=== PATIENT | male | born 1970 | race Caucasian/White ===

== ENCOUNTER 2023-02-04 18:58 | Inpatient (IN) | payer BC ==
[2023-02-04] MEDS ORDERED: fentaNYL 100 MCG/2 ML SDV IVPUSH ONE ×2 (19:14→20:03)
[2023-02-04] MEDS ORDERED: Ondansetron 4 MG/2 ML SDV IVPUSH ONE (19:14)
[2023-02-04] MEDS ORDERED: Lactated Ringers 1,000 ML IV SCH (19:15)
[2023-02-04] MEDS ORDERED: Iopamidol 612 MG/ML 100 ML Bottle IVPUSH ONE (19:41)
[2023-02-04] MEDS ORDERED: Sodium Chloride 0.9% 10 ML SDV FLUSH ONE (19:41)
[2023-02-04] MEDS ORDERED: metroNIDAZOLE/Normal Saline 500 MG in Premix Bag 1 BAG IV ONE (20:11)
[2023-02-04] MEDS ORDERED: HYDROmorphone 0.5 MG/0.5 ML Syringe IVPUSH ONE (20:11)
[2023-02-04] MEDS ORDERED: Cefepime 2 GM in Sodium Chloride 0.9% 50 ML IV ONE (20:11)
[2023-02-04] MEDS ORDERED: Lactated Ringers 500 ML IV ONE (20:18)
[2023-02-04] MEDS ORDERED: Bupivacaine 0.5%/EPINEPHrine 1:200,000 50 ML MDV ONE (21:25)
[2023-02-04] MEDS ORDERED: Lidocaine 1% with EPINEPHrine 1:100,000 20 ML MDV ONE (21:25)
[2023-02-04] MEDS ORDERED: fentaNYL 100 MCG/2 ML SDV IVPUSH PRN (21:26)
[2023-02-04] MEDS ORDERED: Ondansetron 4 MG/2 ML SDV IVPUSH PRN (21:26)
[2023-02-04] MEDS ORDERED: Lidocaine 1% 2 ML ONE (21:30)
[2023-02-04] MEDS ORDERED: Ondansetron 4 MG/2 ML SDV ONE (21:30)
[2023-02-04] MEDS ORDERED: fentaNYL 100 MCG/2 ML SDV ONE (21:30)
[2023-02-04] MEDS ORDERED: Rocuronium 50 MG/5 ML Vial ONE (21:30)
[2023-02-04] MEDS ORDERED: Propofol 200 MG/20 ML SDV ONE (21:30)
[2023-02-04] MEDS ORDERED: Sugammadex Sodium 200 MG/2 ML VIAL ONE (22:52)
[2023-02-04] MEDS ORDERED: Ketorolac 30 MG/ML SDV ONE (22:52)
[2023-02-04] MEDS ORDERED: HYDROmorphone 0.5 MG/0.5 ML Syringe ONE (22:53)
[2023-02-04] MEDS ORDERED: Acetaminophen 325 MG Tab PO PRN (23:32)
[2023-02-04] MEDS ORDERED: Albuterol 0.083% 2.5 MG/3 ML Neb Soln NEB ONE (23:35)
[2023-02-04] MEDS ORDERED: Albuterol 0.083% 2.5 MG/3 ML Neb Soln ONE (23:39)
[2023-02-04] MEDS ORDERED: Morphine 4 MG/ML Syringe IVPUSH PRN (23:41)
[2023-02-05] MEDS: HYDROmorphone 0.5 MG/0.5 ML Syringe IVPUSH PRN ×8 (01:10→22:50)
[2023-02-05] MEDS: Sodium Chloride 0.9% 1,000 ML IV SCH ×3 (01:10→18:20)
[2023-02-05] MEDS: metroNIDAZOLE/Normal Saline 500 MG in Premix Bag 1 BAG IV SCH ×3 (04:00→20:03)
[2023-02-05] MEDS: Cefepime 2 GM in Sodium Chloride 0.9% 50 ML IV SCH ×3 (04:01→20:01)
[2023-02-05] MEDS: Enoxaparin 40 MG/0.4 ML Syringe SUBCUT SCH (09:09)
[2023-02-05] MEDS: Nicotine 21 MG/24 Hr Patch TRDERM SCH (10:20)
[2023-02-06] MEDS: oxyCODONE 5 MG Tab PO PRN ×2 (00:05→08:51)
[2023-02-06] MEDS: HYDROmorphone 0.5 MG/0.5 ML Syringe IVPUSH PRN ×6 (02:00→22:52)
[2023-02-06] MEDS: Ondansetron 4 MG/2 ML SDV IVPUSH PRN ×2 (02:04→14:38)
[2023-02-06] MEDS: Sodium Chloride 0.9% 1,000 ML IV SCH ×3 (02:16→16:58)
[2023-02-06] MEDS: Cefepime 2 GM in Sodium Chloride 0.9% 50 ML IV SCH ×3 (04:36→20:11)
[2023-02-06] MEDS: metroNIDAZOLE/Normal Saline 500 MG in Premix Bag 1 BAG IV SCH ×3 (04:38→20:12)
[2023-02-06] MEDS: Enoxaparin 40 MG/0.4 ML Syringe SUBCUT SCH (08:50)
[2023-02-06] MEDS: Nicotine 21 MG/24 Hr Patch TRDERM SCH (08:51)
[2023-02-06] MEDS: Acetaminophen 325 MG Tab PO SCH ×3 (11:58→22:06)
[2023-02-06] MEDS: Famotidine 20 MG Tab PO SCH (14:38)
[2023-02-07] MEDS: Sodium Chloride 0.9% 1,000 ML IV SCH ×3 (00:49→16:33)
[2023-02-07] MEDS: HYDROmorphone 0.5 MG/0.5 ML Syringe IVPUSH PRN ×7 (01:53→22:23)
[2023-02-07] MEDS: Acetaminophen 325 MG Tab PO SCH ×4 (04:36→22:26)
[2023-02-07] MEDS: metroNIDAZOLE/Normal Saline 500 MG in Premix Bag 1 BAG IV SCH ×3 (04:38→20:09)
[2023-02-07] MEDS: Cefepime 2 GM in Sodium Chloride 0.9% 50 ML IV SCH ×3 (04:40→20:06)
[2023-02-07] MEDS: Famotidine 20 MG Tab PO SCH (09:45)
[2023-02-07] MEDS: Enoxaparin 40 MG/0.4 ML Syringe SUBCUT SCH (09:46)
[2023-02-07] MEDS: Nicotine 21 MG/24 Hr Patch TRDERM SCH (09:46)
[2023-02-07] MEDS: Ondansetron 4 MG/2 ML SDV IVPUSH PRN (12:49)
[2023-02-08] MEDS: Sodium Chloride 0.9% 1,000 ML IV SCH ×3 (01:06→18:55)
[2023-02-08] MEDS: HYDROmorphone 0.5 MG/0.5 ML Syringe IVPUSH PRN ×6 (01:09→21:55)
[2023-02-08] MEDS: Ondansetron 4 MG/2 ML SDV IVPUSH PRN ×2 (01:13→11:44)
[2023-02-08] MEDS: Cefepime 2 GM in Sodium Chloride 0.9% 50 ML IV SCH ×3 (03:50→19:38)
[2023-02-08] MEDS: metroNIDAZOLE/Normal Saline 500 MG in Premix Bag 1 BAG IV SCH ×3 (03:53→19:38)
[2023-02-08] MEDS: Acetaminophen 325 MG Tab PO SCH ×4 (03:54→21:35)
[2023-02-08] MEDS: Nicotine 21 MG/24 Hr Patch TRDERM SCH (08:22)
[2023-02-08] MEDS: Enoxaparin 40 MG/0.4 ML Syringe SUBCUT SCH (08:23)
[2023-02-08] MEDS: Famotidine 20 MG Tab PO SCH (08:24)
[2023-02-08] MEDS: amLODIPine 5 MG Tab PO SCH (11:29)
[2023-02-08] MEDS: oxyCODONE 5 MG Tab PO PRN (15:37)
[2023-02-08] MEDS ORDERED: cloNIDine 0.1 MG Tab PO PRN (16:08)
[2023-02-09] MEDS: HYDROmorphone 0.5 MG/0.5 ML Syringe IVPUSH PRN ×2 (02:27→20:58)
[2023-02-09] MEDS: metroNIDAZOLE/Normal Saline 500 MG in Premix Bag 1 BAG IV SCH (03:08)
[2023-02-09] MEDS: Cefepime 2 GM in Sodium Chloride 0.9% 50 ML IV SCH (03:08)
[2023-02-09] MEDS: Acetaminophen 325 MG Tab PO SCH ×4 (04:43→21:01)
[2023-02-09] MEDS: oxyCODONE 5 MG Tab PO PRN (07:55)
[2023-02-09] MEDS: Nicotine 21 MG/24 Hr Patch TRDERM SCH (08:01)
[2023-02-09] MEDS: Famotidine 20 MG Tab PO SCH (08:02)
[2023-02-09] MEDS: amLODIPine 5 MG Tab PO SCH (08:02)
[2023-02-09] MEDS: Enoxaparin 40 MG/0.4 ML Syringe SUBCUT SCH (08:02)
[2023-02-09] MEDS: Sodium Chloride 0.9% 1,000 ML IV SCH ×2 (08:10→20:58)
[2023-02-09] MEDS ORDERED: Magnesium Sulfate/Water 2 GM/50 ML BAG IV ONE (09:00)
[2023-02-09] MEDS: hydrALAZINE 20 MG/ML SDV IVPUSH SCH ×3 (10:56→21:01)
[2023-02-10] MEDS: oxyCODONE 5 MG Tab PO PRN ×3 (02:20→21:38)
[2023-02-10] MEDS: hydrALAZINE 20 MG/ML SDV IVPUSH SCH ×4 (03:15→21:37)
[2023-02-10] MEDS: Acetaminophen 325 MG Tab PO SCH ×4 (03:15→21:36)
[2023-02-10] MEDS: Enoxaparin 40 MG/0.4 ML Syringe SUBCUT SCH (08:39)
[2023-02-10] MEDS: Famotidine 20 MG Tab PO SCH (08:40)
[2023-02-10] MEDS: amLODIPine 5 MG Tab PO SCH (08:40)
[2023-02-10] MEDS: Nicotine 21 MG/24 Hr Patch TRDERM SCH (08:40)
[2023-02-10] MEDS: Sodium Chloride 0.9% 1,000 ML IV SCH (09:10)
[2023-02-10] MEDS: Potassium Chloride 10 MEQ in Premix Bag 1 BAG IV SCH ×4 (11:01→14:15)
[2023-02-10] MEDS ORDERED: HYDROmorphone 0.5 MG/0.5 ML Syringe IVPUSH PRN (11:54)
[2023-02-10] MEDS: Docusate Sodium 100 MG Cap PO SCH (12:10)
[2023-02-10] MEDS: Polyethylene Glycol 3350 Powder 17 GM Packet PO SCH (12:10)
[2023-02-11] MEDS: Docusate Sodium 100 MG Cap PO SCH ×2 (00:47→12:10)
[2023-02-11] MEDS: Sodium Chloride 0.9% 1,000 ML IV SCH (02:48)
[2023-02-11] MEDS: Acetaminophen 325 MG Tab PO SCH ×4 (03:03→21:03)
[2023-02-11] MEDS: hydrALAZINE 20 MG/ML SDV IVPUSH SCH ×4 (03:04→21:02)
[2023-02-11] MEDS: Enoxaparin 40 MG/0.4 ML Syringe SUBCUT SCH (08:03)
[2023-02-11] MEDS: amLODIPine 5 MG Tab PO SCH (08:03)
[2023-02-11] MEDS: Famotidine 20 MG Tab PO SCH (08:03)
[2023-02-11] MEDS: Polyethylene Glycol 3350 Powder 17 GM Packet PO SCH (08:04)
[2023-02-11] MEDS: Nicotine 21 MG/24 Hr Patch TRDERM SCH (08:04)
[2023-02-11] MEDS ORDERED: Benzocaine/Cetylpyridinium/Menthol Lozenge MUCMEM PRN (11:34)
[2023-02-12] MEDS: Docusate Sodium 100 MG Cap PO SCH (00:03)
[2023-02-12] MEDS: Acetaminophen 325 MG Tab PO SCH (03:58)
[2023-02-12] MEDS: hydrALAZINE 20 MG/ML SDV IVPUSH SCH (04:00)
[2023-02-12] MEDS: Famotidine 20 MG Tab PO SCH (08:48)
[2023-02-12] MEDS: Enoxaparin 40 MG/0.4 ML Syringe SUBCUT SCH (08:48)
[2023-02-12] MEDS: Polyethylene Glycol 3350 Powder 17 GM Packet PO SCH (08:48)
[2023-02-12] MEDS: amLODIPine 5 MG Tab PO SCH (08:48)
[2023-02-12] MEDS: Nicotine 21 MG/24 Hr Patch TRDERM SCH (08:50)
== END 2023-02-12 10:31 | disposition home or self-care (01) | DRG 710 ==
LOC: JD.ED 18:58 → JD.SDS 21:04 → JD.ICU 23:33 → JD.MS 02-11 15:34
PROVIDERS: ADMIT Surgery; ATTEND Surgery
PROC: 0DTJ4ZZ Resection of Appendix, Percutaneous Endoscopic Approach (ICD-10-PCS; principal; 2023-02-04)
PROC: 3E03329 Introduction of Other Anti-infective into Peripheral Vein, Percutaneous Approach (ICD-10-PCS; 2023-02-04)
DX: A41.9 Sepsis, unspecified organism (principal); K35.33 Acute appendicitis with perforation, localized peritonitis, and gangrene, with abscess; F17.210 Nicotine dependence, cigarettes, uncomplicated; I10 Essential (primary) hypertension; Z88.0 Allergy status to penicillin; Z79.899 Other long term (current) drug therapy; Z91.018 Allergy to other foods
CPT/HCPCS: 00840; 36415; 51702; 71045; 71045-26; 74177; 74177-26; 80048; 80053; 81001; 83690; 83735; 85007; 85025; 85027; 87086; 94640; 96361; 96365; 96367; 96375; 96376; 99221; 99232; 99285; 99285-25; A9270-GY; J0360; J0692; J1170; J1650; J1885; J2270; J2405; J2704; J3010; J3475; J3480; J3490; J7030; J7120; J7620-GY; Q9967

== ENCOUNTER 2025-01-09 13:26 | Emergency (ER) | payer BC ==
[2025-01-09] MEDS ORDERED: EPINEPHrine 1:10,000 1 MG/10 ML Syringe ONE ×4 (13:29→13:38)
[2025-01-09] MEDS ORDERED: Sodium Bicarbonate 8.4% 50 MEQ/50 ML Syringe ONE (13:33)
[2025-01-09] MEDS ORDERED: Magnesium Sulf/Wat 4 GM/50 mL 50 ML IV ONE (13:34)
== END 2025-01-09 21:28 | disposition expired ==
LOC: JD.ED 13:26
DX: I46.9 Cardiac arrest, cause unspecified (principal); Z88.0 Allergy status to penicillin; Z91.018 Allergy to other foods; Z79.899 Other long term (current) drug therapy
CPT/HCPCS: 31500; 92950; 96374; 99285; J3475; 99291; J3490